=== PATIENT | female | born 1940 | race Caucasian/White ===

== ENCOUNTER 2019-10-06 12:10 | Inpatient (IN) ==
[2019-10-06] MEDS ORDERED: Isovue-370 500 ML BOTTLE IVP ONE (13:00)
[2019-10-06 13:27] LABS: Basophils # 0.1 K/mcL (0.0-0.2); Basophils % 1.1 %; Eosinophils # 0.1 K/mcL (0.0-0.6); Eosinophils % 1.7 %; Hematocrit 36.5 % (35.3-44.9); Hemoglobin 12.4 g/dL (11.5-15.4); Immature Granulocytes % 0.8 % (0-4); Lymphocytes # 1.1 K/mcL (0.6-4.6); Lymphocytes % 16.4 %; Mean Corpuscular Hemoglobin 34.8 pg (28.0-33.3); Mean Corpuscular Volume 102.5 fL (83.0-100.0); Mean Platelet Volume 8.5 fL (9.4-12.4); Monocytes # 0.8 K/mcL (0.0-1.3); Monocytes % 12.7 %; Neutrophils # 4.4 K/mcL (1.6-8.9); Platelet Count 459 K/mcL (140-400); Red Blood Count 3.56 M/mcL (3.82-4.97); Red Cell Distribution Width 12.6 % (11.5-14.5); Segmented Neutrophils % 67.3 %; White Blood Count 6.5 K/mcL (4.3-11.1)
[2019-10-06 13:44] LABS: Troponin I < 0.03 ng/mL (< 0.04)
[2019-10-06 13:56] LABS: BUN/Creatinine Ratio 13 (6-26); Blood Urea Nitrogen 7 mg/dL (8-23); Carbon Dioxide 25 mEq/L (23-29); Chloride 103 mEq/L (98-107); Glucose 94 mg/dL (70-105); Osmolality,Calculated 280 (280-300); Potassium 3.9 mEq/L (3.5-5.1); Sodium 136 mEq/L (136-145); eGFR For African Americans > 60 (> 60); eGFR For Non-African Americans > 60 (> 60)
[2019-10-06] MEDS ORDERED: Aspirin 325 MG TABLET PO ONE (14:11)
[2019-10-06] MEDS ORDERED: Aspirin 81 MG TAB.CHEW PO STA (15:09)
[2019-10-06] MEDS ORDERED: *HR* Promethazine 25 MG/ML VIAL IVP PRN (16:28)
[2019-10-06] MEDS ORDERED: Ondansetron 4 MG/2 ML VIAL IVP PRN (16:28)
[2019-10-06] MEDS ORDERED: Mag Hydrox/Al Hydrox/Simeth 30 ML UDC PO PRN (16:28)
[2019-10-06] MEDS ORDERED: Acetaminophen 325 MG TABLET PO PRN (16:28)
[2019-10-06] MEDS ORDERED: MOM Conc 10 ML UD.LIQ PO PRN (16:28)
[2019-10-06] MEDS ORDERED: Naloxone 0.4 MG/ML INJ IVP PRN (16:28)
[2019-10-06] MEDS: Nitroglycerin 0.4 MG TAB.SUBL SL PRN ×5 (17:39→22:36)
[2019-10-06] MEDS: *HR* Heparin 5,000 UNIT/ML VIAL SQ SCH (17:59)
[2019-10-06] MEDS ORDERED: Melatonin 3 MG TABLET PO ONE (22:15)
[2019-10-06] MEDS ORDERED: Morphine Sulfate 2 MG/ML SYRINGE IVP ONE (23:35)
[2019-10-07] MEDS ORDERED: Isovue-370 500 ML BOTTLE IVP ONE (00:39)
[2019-10-07 00:57] LABS: Basophils # 0.1 K/mcL (0.0-0.2); Basophils % 1.1 %; Eosinophils # 0.1 K/mcL (0.0-0.6); Eosinophils % 2.4 %; Hematocrit 31.2 % (35.3-44.9); Immature Granulocytes % 0.6 % (0-4); Lymphocytes # 1.1 K/mcL (0.6-4.6); Lymphocytes % 19.8 %; Mean Corpuscular HGB Conc 34.6 g/dL (31.6-35.5); Mean Corpuscular Hemoglobin 34.8 pg (28.0-33.3); Mean Corpuscular Volume 100.6 fL (83.0-100.0); Mean Platelet Volume 8.4 fL (9.4-12.4); Monocytes # 0.7 K/mcL (0.0-1.3); Monocytes % 13.4 %; Neutrophils # 3.4 K/mcL (1.6-8.9); Platelet Count 403 K/mcL (140-400); Red Cell Distribution Width 12.6 % (11.5-14.5); Segmented Neutrophils % 62.7 %; White Blood Count 5.5 K/mcL (4.3-11.1)
[2019-10-07 00:58] LABS: Hemoglobin 10.8 g/dL (11.5-15.4)
[2019-10-07 01:05] LABS: BUN/Creatinine Ratio 21 (6-26); Blood Urea Nitrogen 14 mg/dL (8-23); Calcium 8.8 mg/dL (8.6-10.3); Carbon Dioxide 26 mEq/L (23-29); Chloride 105 mEq/L (98-107); Chol/HDL Ratio 2.8 (0-4.9); Cholesterol 179 mg/dL (< 200); Glucose 100 mg/dL (70-105); HDL Cholesterol 63 mg/dL (40-59); LDL Cholesterol,Calculated 59 mg/dL (0-99); Magnesium 1.8 mg/dL (1.6-2.6); Osmolality,Calculated 283 (280-300); Phosphorous 3.2 mg/dL (2.7-4.5); Potassium 3.3 mEq/L (3.5-5.1); Sodium 136 mEq/L (136-145); Triglycerides 286 mg/dL (< 150); eGFR For African Americans > 60 (> 60); eGFR For Non-African Americans > 60 (> 60)
[2019-10-07] MEDS: *HR* Heparin 5,000 UNIT/ML VIAL SQ SCH ×2 (05:51→17:51)
[2019-10-07] MEDS ORDERED: Regadenoson 0.4 MG/5 ML SYRINGE IVP ONE (06:24)
[2019-10-07 10:19] LABS: Thyroid Stimulating Hormone 2.008 mcIU/mL (0.340-5.600)
[2019-10-07] MEDS: Budesonide/Formoterol 80/4.5 1 PUFF INH IH SCH ×2 (10:22→20:17)
[2019-10-07] MEDS: Primidone 50 MG TABLET PO SCH ×2 (10:28→20:52)
[2019-10-07 10:33] LABS: Folate > 22.3 ng/mL (3.0-16.0); Vitamin B12 1216 pg/mL (250-1100)
[2019-10-07] MEDS ORDERED: Melatonin 3 MG TABLET PO ONE (20:59)
[2019-10-08 02:14] LABS: Hematocrit 34.1 % (35.3-44.9); Hemoglobin 11.5 g/dL (11.5-15.4); Mean Corpuscular HGB Conc 33.7 g/dL (31.6-35.5); Mean Corpuscular Volume 100.9 fL (83.0-100.0); Mean Platelet Volume 8.6 fL (9.4-12.4); Platelet Count 393 K/mcL (140-400); Red Blood Count 3.38 M/mcL (3.82-4.97); Red Cell Distribution Width 12.7 % (11.5-14.5); White Blood Count 4.7 K/mcL (4.3-11.1)
[2019-10-08 02:36] LABS: BUN/Creatinine Ratio 19 (6-26); Blood Urea Nitrogen 9 mg/dL (8-23); Calcium 9.2 mg/dL (8.6-10.3); Carbon Dioxide 28 mEq/L (23-29); Chloride 104 mEq/L (98-107); Glucose 105 mg/dL (70-105); Osmolality,Calculated 285 (280-300); Potassium 3.9 mEq/L (3.5-5.1); Sodium 138 mEq/L (136-145); eGFR For African Americans > 60 (> 60); eGFR For Non-African Americans > 60 (> 60)
[2019-10-08] MEDS: *HR* Heparin 5,000 UNIT/ML VIAL SQ SCH ×2 (05:23→18:24)
[2019-10-08] MEDS: Budesonide/Formoterol 80/4.5 1 PUFF INH IH SCH ×2 (07:48→19:32)
[2019-10-08] MEDS: Primidone 50 MG TABLET PO SCH ×2 (08:59→20:07)
[2019-10-08] MEDS ORDERED: Aspirin 325 MG TABLET PO SCH (12:21)
[2019-10-08] MEDS: Aspirin 325 MG TABLET PO SCH ×2 (12:53→20:07)
[2019-10-08] MEDS: Melatonin 3 MG TABLET PO PRN (20:07)
[2019-10-09] MEDS: *HR* Heparin 5,000 UNIT/ML VIAL SQ SCH ×2 (04:30→17:43)
[2019-10-09 05:55] LABS: Hematocrit 35.4 % (35.3-44.9); Hemoglobin 11.9 g/dL (11.5-15.4); Mean Corpuscular HGB Conc 33.6 g/dL (31.6-35.5); Mean Corpuscular Hemoglobin 34.2 pg (28.0-33.3); Mean Corpuscular Volume 101.7 fL (83.0-100.0); Mean Platelet Volume 8.5 fL (9.4-12.4); Platelet Count 408 K/mcL (140-400); Red Blood Count 3.48 M/mcL (3.82-4.97); Red Cell Distribution Width 12.7 % (11.5-14.5); White Blood Count 4.4 K/mcL (4.3-11.1)
[2019-10-09 06:19] LABS: BUN/Creatinine Ratio 27 (6-26); Blood Urea Nitrogen 13 mg/dL (8-23); Calcium 8.7 mg/dL (8.6-10.3); Carbon Dioxide 27 mEq/L (23-29); Chloride 102 mEq/L (98-107); Glucose 94 mg/dL (70-105); Osmolality,Calculated 284 (280-300); Potassium 4.2 mEq/L (3.5-5.1); Sodium 137 mEq/L (136-145); eGFR For African Americans > 60 (> 60); eGFR For Non-African Americans > 60 (> 60)
[2019-10-09] MEDS: Budesonide/Formoterol 80/4.5 1 PUFF INH IH SCH ×2 (07:52→22:01)
[2019-10-09] MEDS: Aspirin 325 MG TABLET PO SCH ×2 (08:30→19:43)
[2019-10-09] MEDS: Primidone 50 MG TABLET PO SCH ×2 (08:31→19:45)
[2019-10-09] MEDS: Melatonin 3 MG TABLET PO PRN (19:43)
[2019-10-10 02:46] LABS: Hematocrit 33.5 % (35.3-44.9); Hemoglobin 11.1 g/dL (11.5-15.4); Mean Corpuscular HGB Conc 33.1 g/dL (31.6-35.5); Mean Corpuscular Hemoglobin 34.5 pg (28.0-33.3); Mean Platelet Volume 8.6 fL (9.4-12.4); Platelet Count 359 K/mcL (140-400); Red Blood Count 3.22 M/mcL (3.82-4.97); Red Cell Distribution Width 12.6 % (11.5-14.5); White Blood Count 5.3 K/mcL (4.3-11.1)
[2019-10-10 03:06] LABS: BUN/Creatinine Ratio 40 (6-26); Blood Urea Nitrogen 16 mg/dL (8-23); Calcium 9.3 mg/dL (8.6-10.3); Carbon Dioxide 25 mEq/L (23-29); Chloride 105 mEq/L (98-107); Glucose 96 mg/dL (70-105); Osmolality,Calculated 281 (280-300); Potassium 3.7 mEq/L (3.5-5.1); Sodium 135 mEq/L (136-145); eGFR For African Americans > 60 (> 60); eGFR For Non-African Americans > 60 (> 60)
[2019-10-10] MEDS: *HR* Heparin 5,000 UNIT/ML VIAL SQ SCH (05:56)
[2019-10-10] MEDS: Budesonide/Formoterol 80/4.5 1 PUFF INH IH SCH (07:48)
[2019-10-10] MEDS: Aspirin 325 MG TABLET PO SCH (09:11)
[2019-10-10] MEDS: Primidone 50 MG TABLET PO SCH (09:12)
[2019-10-10] MEDS ORDERED: *HR* Heparin 10,000 UNIT/10 ML VIAL ONE (12:39)
[2019-10-10] MEDS ORDERED: Heparin 1,000 UNITS/500 mL 500 ML ONE (12:39)
[2019-10-10] MEDS ORDERED: Nitroglycerin 1,000 MCG/10 ML VIAL IV ONE (12:39)
[2019-10-10] MEDS ORDERED: 0.9 % Sodium Chloride 2,000 ML ONE (12:39)
[2019-10-10] MEDS ORDERED: ISOVUE-370 200 ML INFUS..BTL ONE (12:39)
[2019-10-10] MEDS ORDERED: *HR* Midazolam HCl 2 MG/2 ML VIAL ONE (13:29)
[2019-10-10] MEDS ORDERED: Verapamil 5 MG/2 ML VIAL ONE (13:51)
[2019-10-10] MEDS ORDERED: Isosorbide MONOnitrate (24 HR) 30 MG TAB.ER.24H PO SCH (14:27)
[2019-10-10 17:02] VITALS: BP 148/68
[2019-10-10] MEDS ORDERED: Adenosine 90 MG/30 ML MLS IV ONE (18:48)
[2019-10-11] MEDS ORDERED: Aspirin 81 MG TAB.CHEW PO SCH (09:00)
== END 2019-10-10 18:49 | disposition home or self-care (01) | DRG 287 ==
LOC: EMEROOARM 12:10 → CDU 12:10 → 3BNU 15:30
PROVIDERS: ADMIT Internal Medicine; ATTEND Internal Medicine